=== PATIENT | female | born 1965 | race Caucasian/White ===

== ENCOUNTER → 2018-04-18 | Outpatient (CLI) | payer OTHER ==
--- NOTE | 2018-04-18 13:38 | XR ---
EXAMINATION TYPE: XR chest 2V DATE OF EXAM: 04/18/2018 COMPARISON: None HISTORY: Shortness of breath TECHNIQUE: Frontal and lateral views of the chest are obtained. FINDINGS: Scattered senescent parenchymal changes noted. No evidence for infiltrate. No evidence for atelectasis. Heart size is stable. Mediastinal structures are stable and grossly unremarkable. No evidence for hilar prominence. Degenerative changes dorsal spine. IMPRESSION: 1. No evidence for acute pulmonary disease.
--- NOTE | 2018-04-18 15:18 | BD ---
EXAMINATION TYPE: Axial Bone Density DATE OF EXAM: 04/18/2018 COMPARISON: NONE CLINICAL HISTORY: screening osteoporosis Height: 5'3 Weight: 182 FRAX RISK QUESTIONS: Secondary Osteoporosis: RISK FACTORS HISTORY OF: History of Wrist Fracture: jami When: age 14 Postmenopausal woman: MEDICATIONS: Thyroid Medications: Which medication: Synthroid How Lon years Additional Medications: cholesterol, sleeping aids, anti depressant, vitamin D Additional History: EXAM MEASUREMENTS: Bone mineral densitometry was performed using the [employer] System. Bone mineral density as measured about the Lumbar spine is: ----- L1-L4(G/cm2): 1.016 T Score Values are as follows: ----- L2: -1.5 ----- L3: -0.8 ----- L4: -1.3 ----- L1-L4: -1.4 Bone mineral density about the R hip (g/cm2): 0.762 Bone mineral density about the L hip (g/cm2): 0.793 T Score values are as follows: -----R Neck: -2.0 -----L Neck: -1.8 -----R Total: -1.1 -----L Total: -0.9 IMPRESSION: Osteopenia lumbar spine and right femur. NOTE: T-SCORE=SD OF THE YOUNG ADULT MEAN.
--- NOTE | 2018-04-24 11:46 | MM ---
Reason for exam: screening (asymptomatic). History: Patient is nulliparous. Benign excisional biopsy of the right breast. Physical Findings: A clinical breast exam by your physician is recommended on an annual basis and results should be correlated with mammographic findings. MG 3D Screening Mammo W/Cad Bilateral CC and MLO view(s) were taken. There are scattered fibroglandular densities. There is chronic nodularity in the right breast. No significant changes when compared with prior studies. ASSESSMENT: Benign, BI-RAD 2 RECOMMENDATION: Routine screening mammogram of both breasts in 1 year.
== END | disposition home or self-care (01) ==
LOC: RADMAMWWP 12:18
PROVIDERS: ATTEND Family Medicine
DX: Z12.31 Encounter for screening mammogram for malignant neoplasm of breast (principal); M85.88 Other specified disorders of bone density and structure, other site; M85.851 Other specified disorders of bone density and structure, right thigh; R05 Cough; Z78.0 Asymptomatic menopausal state
CPT/HCPCS: 71046; 77063; 77067; 77080

== ENCOUNTER → 2020-01-28 | Outpatient (CLI) | payer OTHER ==
--- NOTE | 2020-01-28 20:25 | CONS ---
CONSULTATION REASON FOR CONSULTATION: Sleep apnea. 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 Note that the patient has a history of obesity and the patient has undergone bariatric surgery which involved a Fiona-en-Y bypass. The patient has lost a considerable amount of weight in the form of 150 pounds. Note that she used to weigh around 321 pounds and currently is down to 176. During this time the patient was diagnosed having obstructive sleep apnea, and as she lost weight she ultimately ended up stopping her CPAP treatment. Note that her machine broke and she did not pursue this matter further, as the patient lost a considerable amount of weight, and the patient is coming to see me due to ongoing concerns of sleep apnea. Apparently she has been waking up on and off in the middle of the night and sleep apnea was entertained. Note that the patient has a history of binge-eating disorder. The patient has been maintained on Vyvanse 40 mg given to her by her psychiatrist. She also has chronic insomnia, for which she is on a combination of Seroquel and Lunesta. Seroquel is being given at a dose of 100 mg p.o. daily at bedtime and Lunesta 3 mg at bedtime. The combination has helped her to generate and maintain sleep, although sometimes it takes her more than 10-20 minutes to fall asleep. She has a chronic history of depression, under the care of Dr. Cali, and currently she is on Pristiq. She suffers from hypothyroidism and she is on Synthroid 175 mcg p.o. daily. Note that the patient denies having any significant snoring. She does not have a bed partner, and as such, she is not sure if she snores. She occasionally grinds her teeth. She is restless in her legs, and restless legs syndrome has also been diagnosed in the family, including her mother and sister. Both of them have been treated with Klonopin. She occasionally talks in her sleep. She has anxiety and depression, as stated. She has poor ability to concentrate and she feels tired at work. She goes to bed around 10 p.m., wakes up at 8 a.m. in the morning. Her work starts at 10:30 p.m. and ends at 7 p.m. On weekends she sleeps between midnight and 11 a.m. She sleeps on her side and back and goes in different body positions. Her weight is stable for now. She wakes up seldom in the middle of the night. PAST MEDICAL HISTORY: Past medical history includes depression, binge-eating disorder, history of morbid obesity, history of hypothyroidism, hyperlipidemia and chronic insomnia. SURGICAL HISTORY: Surgical history includes gastric bypass surgery, bilateral carpal tunnel release and right knee replacement. DRUG ALLERGIES: STEROIDS. That drives her depression more than allergic reactions. OUTPATIENT MEDICATIONS: Outpatient medications include Vyvanse 40 mg p.o. daily, Pristiq 100 mg p.o. daily, Synthroid 175 mcg p.o. daily, Zocor dose not known, Seroquel 100 mg at bedtime, Lunesta 3 mg at bedtime. SOCIAL HISTORY: Nonsmoker. She quit smoking 20 years ago. She is an ex-smoker. No history of alcoholism. No history of IV drugs. FAMILY HISTORY: Positive for cardiac disease, including mother and father, who had coronary bypass surgery. Brother had stents. RLS in her mother and sister, who are on Klonopin. Mental health and depression also run in the family. REVIEW OF SYSTEMS: Fourteen-point review of systems was done. Positive findings are mentioned above in the history of present illness. No nocturnal heartburn. No chronic aches or pains. No palpitations. No heartburn. No episodes of waking up gasping for air or choking sensation. PHYSICAL EXAMINATION: VITAL SIGNS: BP is 139/80, pulse 80, respirations 14, temperature 98.7. Saturation is 98% on room air. BMI 30.4. Neck size is 13 inches. Camden score is 14. Weight is 176. GENERAL APPEARANCE: Calm and comfortable. No acute distress. HEAD: Atraumatic, normocephalic. NECK: Supple. No JVD. No goiter or neck masses. Mallampati class II. LUNGS: Clear to auscultation. HEART: Heart sounds are regular rate and rhythm. Normal S1, S2. No S3, S4. No murmurs. ABDOMEN: Soft, nontender. No organomegaly. EXTREMITIES: No edema. No cyanosis or clubbing. NEUROLOGIC: Awake and alert. There is no focal neurological deficit. PSYCHIATRIC: Positive for anxiety and depression. IMPRESSION: 1. Chronic insomnia, maintained on a combination of Lunesta and Seroquel at bedtime with adequate response and ability to generate and maintain sleep. 2. Episodic nocturnal arousals. Could be related to depression, as the patient has chronic history of depression, and depression is well known to cause sleep fragmentation and client executive arousals. Also consider other possibilities, including restless legs syndrome, as this condition runs in her family, and the patient has been told to have RLS findings in the past. Sleep apnea, though possible, is felt to be less likely. The patient was diagnosed having sleep apnea many years back, and she underwent bariatric surgery and lost a considerable amount of weight; I am not sure if she has any residual obstructive sleep apnea at this point in time. 3. Chronic depression. 4. Chronic insomnia. 5. Hyperlipidemia. 6. Hypothyroidism. 7. Obesity with previous Fiona-en-Y gastric bypass surgery with subsequent weight loss. Current BMI is down to 30.4. PLAN: 1. Continue Seroquel and Lunesta combination for chronic insomnia. 2. Vyvanse for increased alertness and at the same time binge-eating disorder. 3. Continue Pristiq for chronic depression. 4. Proceed with a polysomnogram to assess the patient's ability to generate and maintain sleep and to assess the patient's sleep efficiency and sleep fragmentation and to look for any other comorbidities such as CASSIA or restless legs syndrome contributing to the patient's sleep fragmentation. Based on the results, we will make further recommendations. Will collaborate with Psychiatry regarding her care. Will make further adjustments if significant pathology is identified in her sleep study. MMODL / IJN: [id number] /
== END | disposition home or self-care (01) ==
LOC: SLEEP 14:50
PROVIDERS: ATTEND Internal Medicine Critical Care Medicine
DX: G47.00 Insomnia, unspecified (principal); G25.81 Restless legs syndrome; F32.9 Major depressive disorder, single episode, unspecified; E78.5 Hyperlipidemia, unspecified; E03.9 Hypothyroidism, unspecified; E66.9 Obesity, unspecified; Z98.84 Bariatric surgery status; Z87.891 Personal history of nicotine dependence; Z88.8 Allergy status to other drugs, medicaments and biological substances; Z79.890 Hormone replacement therapy; Z79.899 Other long term (current) drug therapy
CPT/HCPCS: 99211